=== PATIENT | female | born 1975 | race Hispanic/Latino ===

== ENCOUNTER 2017-05-25 03:24 | Emergency (ER) | payer SELFPAY ==
[2017-05-25 03:28] VITALS: BMI 22.4
[2017-05-25 03:37] VITALS: RESP 17
--- NOTE | 2017-05-25 04:01 | ED PDOC ---
Arrival/HPI - General Chief Complaint: Alcohol Ingestion Time Seen by Provider: 05/25/17 03:41 Historian: Patient EM Caveat: Intoxicated - History of Present Illness Narrative History of Present Illness (Text): 05/25/17 03:57 41 year old female, presents to the emergency department accompanied by another individual who is also being seen in the emergency department. Patient became agitated, staggering, and belligerent. Patient calmed down and states she needs to rest in the emergency room until sober. Patient was placed on a stretcher where she was able to sleep for the night. HPI and ROS limited to patient's states of intoxication. Past Medical History - Provider Review Nursing Documentation Reviewed: Yes - Infectious Disease Hx of Infectious Diseases: None - Psychiatric Hx Substance Use: Yes Family/Social History - Physician Review Nursing Documentation Reviewed: Yes Family/Social History: No Known Family HX Smoking Status: Unknown If Ever Smoked Hx Alcohol Use: Yes Frequency of alcohol use: Daily Hx Substance Use: Yes Allergies/Home Meds Home Medications: Home Meds Medication Instructions Recorded Confirmed Unobtainable 05/25/17 05/25/17 Review of Systems - Physician Review All systems were reviewed & negative as marked: Yes - Review of Systems Systems not reviewed;Unavailable: Intoxicated Physical Exam Vital Signs Reviewed: Yes Vital Signs Temp Pulse Resp BP Pulse Ox 05/25/17 06:23 82 17 137/76 98 05/25/17 03:55 97.5 F L 76 17 113/63 97 05/25/17 03:28 97.5 F L 76 17 113/63 97 Temperature: Afebrile Blood Pressure: Normal Pulse: Regular Respiratory Rate: Normal Appearance: Positive for: Well-Appearing, Non-Toxic, Comfortable Pain Distress: None Mental Status: Positive for: Alert and Oriented X 3 - Systems Exam Head: Present: Atraumatic, Normocephalic Pupils: Present: PERRL Extroacular Muscles: Present: EOMI Conjunctiva: Present: Normal Mouth: Present: Moist Mucous Membranes Neck: Present: Normal Range of Motion Respiratory/Chest: Present: Clear to Auscultation, Good Air Exchange. No: Respiratory Distress, Accessory Muscle Use Cardiovascular: Present: Regular Rate and Rhythm, Normal S1, S2. No: Murmurs Abdomen: Present: Normal Bowel Sounds. No: Tenderness, Distention, Peritoneal Signs Back: Present: Normal Inspection Upper Extremity: Present: Normal Inspection. No: Cyanosis, Edema Lower Extremity: Present: Normal Inspection. No: Edema Neurological: Present: GCS=15, CN II-XII Intact, Speech Normal Skin: Present: Warm, Dry, Normal Color. No: Rashes Psychiatric: Present: Alert, Oriented x 3, Normal Insight, Intoxicated Medical Decision Making ED Course and Treatment: 05/25/17 03:13 Impression: 41 year old female presents for EtOH intoxication. Plan: -- Reassess and disposition Progress Notes: 05/25/17 03:11 Patient was staggering and belligerent. Patient was screaming at staff and individual who accompanied her. [place] was called, but no restraints were needed. Patient calmed down. 05/25/17 06:49 Pt. awake,alert,sober. - Scribe Statement The provider has reviewed the documentation as recorded by the Scribe Dayna Keyes Provider Scribe Attestation: All medical record entries made by the Scribe were at my direction and personally dictated by me. I have reviewed the chart and agree that the record accurately reflects my personal performance of the history, physical exam, medical decision making, and the department course for this patient. I have also personally directed, reviewed, and agree with the discharge instructions and disposition. Disposition/Present on Arrival - Present on Arrival Any Indicators Present on Arrival: No History of DVT/PE: No History of Uncontrolled Diabetes: No Urinary Catheter: No History of Decub. Ulcer: No History Surgical Site Infection Following: None - Disposition Have Diagnosis and Disposition been Completed?: Yes Diagnosis: Alcohol intoxication Disposition: HOME/ ROUTINE Disposition Time: 06:48 Patient Plan: Discharge Condition: STABLE Referrals: PCP,NO [Primary Care Provider] - Follow up with primary Alcoholics Anonymous [Outside] - Follow up with primary Forms: [employer] (Kyrgyz)
[2017-05-25 06:30] VITALS: BP 137/76; PULSE 82; O2SAT 98
[2017-05-25 06:58] VITALS: TEMP 98.2
== END 2017-05-25 06:58 | disposition home or self-care (01) ==
LOC: ED 03:24
DX: F10.129 Alcohol abuse with intoxication, unspecified (principal); Y90.9 Presence of alcohol in blood, level not specified